=== PATIENT | female | born 2000 | race Two or more races ===

== ENCOUNTER 2022-06-12 11:17 | Emergency (ER) | payer MEDICAID, OTHER ==
[~2022-06-12] VITALS: Ht 167.6 cm; Wt 118.2 kg
[2022-06-12] MEDS ORDERED: PROMETHAZINE HCL 25 MG/ML 1ML IV ONE (12:30)
[2022-06-12] MEDS ORDERED: HYDROmorphone HCL 2 MG/ML VL/or syr IV ONE (12:30)
[2022-06-12 13:17] VITALS: BP 143/85
[2022-06-12] MEDS ORDERED: NAP500T PO (13:52)
[2022-06-12] MEDS ORDERED: TRAM50TA2 PO (13:52)
== END 2022-06-12 14:19 | disposition home or self-care (01) ==
LOC: EDBD 11:17 → ER 11:17
DX: S83.004A Unspecified dislocation of right patella, initial encounter (principal); Z79.899 Other long term (current) drug therapy; X50.1XXA Overexertion from prolonged static or awkward postures, initial encounter; Y93.89 Activity, other specified; Y92.89 Other specified places as the place of occurrence of the external cause; Y99.8 Other external cause status
CPT/HCPCS: 27560; 73560; 73562; 96374; 96375; 99285; J1170; J2550